=== PATIENT | female | born 1955 | race Caucasian/White ===

== ENCOUNTER 2021-07-30 11:08 | Outpatient (CLI) | payer MEDICARE, OTHER | END 2021-07-30 11:09 | disposition home or self-care (01) | LOC: BICCT 11:08 | PROVIDERS: ATTEND Neurological Surgery | DX: M54.50 Low back pain, unspecified (principal); M43.06 Spondylolysis, lumbar region; M51.26 Other intervertebral disc displacement, lumbar region; M48.061 Spinal stenosis, lumbar region without neurogenic claudication | CPT/HCPCS: 72131 ==

== ENCOUNTER 2021-08-13 08:26 | Outpatient (CLI) | payer MEDICARE, OTHER | END 2021-08-13 08:27 | disposition home or self-care (01) | LOC: BICRAD 08:26 | PROVIDERS: ATTEND Neurological Surgery | DX: M54.50 Low back pain, unspecified (principal) | CPT/HCPCS: 72110 ==